=== PATIENT | female | born 1950 | race Caucasian/White ===

== ENCOUNTER 2016-05-01 15:06 | Emergency (ER) | payer BC ==
--- NOTE | 2016-05-01 15:31 | ED CLINICAL REPORT ---
Clinical Report - Physicians/Mid Levels [facility] [address] [place] [address] 05/01/2016 15:06 Patient: JOHN SILVA Time Seen: 15:22 May 01 2016. Arrived- By private vehicle. Historian- patient. HISTORY OF PRESENT ILLNESS Chief Complaint: EYE REDNESS. This started yesterday, involves the right eye and is characterized as mild. The patient did not sustain an injury. Not injured from contact lenses. No direct trauma to the eyes. No eye pain, eye discomfort, eye itching or eyelid swelling. ( Patient says she woke up yesterday with blood in her right eye. She says it doesn't hurt although she doesfeel little irritation in her right eyelid. No discharge.). REVIEW OF SYSTEMS All systems otherwise negative, except as recorded above. PAST HISTORY See nurses notes. The patient wears contact lenses. No history of prior eye injury, heart disease, diabetes mellitus, glaucoma or lung disease. SOCIAL HISTORY Smoker- current status unknown. Alcohol use. No drug use. ADDITIONAL NOTES The nursing notes have been reviewed. PHYSICAL EXAM Appearance: Alert. Oriented X3. No acute distress. HEENT: Ears normal. Nose normal. Pharynx normal. Head appears normal to external inspection. Rt Eye: Small subconjunctival hemorrhage. No exudate present. Eyes: Visual acuity noted- see nurse's notes. Right eyelid everted for examination. Eyelids appear normal to inspection. Pupils equal, round and reactive to light. Accommodation normal. Visual renee normal. EOMs intact. Right conjunctiva: No swelling, laceration or abrasion. Neck: Neck supple. Normal inspection. Respiratory: No respiratory distress. Skin: No rash. Neuro: Oriented X 3. Mood/affect normal. No motor deficit. No sensory deficit. PROGRESS AND PROCEDURES Course of Care: Small painless subconjunctival hemorrhage. No history of bruising and she is not on blood Thinners. Discussed watchful waiting. Follow up with us or ophthalmology if any worsening or further concerns. CLINICAL IMPRESSION Right subconjunctival hemorrhage INSTRUCTIONS No strenuous activity today, tomorrow as needed. No dietary restrictions. No alcohol. Warnings: GENERAL WARNINGS: Return or contact your physician immediately if your condition worsens or changes unexpectedly, if not improving as expected, or if other problems arise. Specifically return if pain, vomiting or fever worsens. Follow-up: Follow up with your doctor as needed. Understanding of the discharge instructions verbalized by patient. (Electronically signed by David Millan, 05/01/2016 23:38)
--- NOTE | 2016-05-01 15:31 | ED NURSING NOTES ---
Clinical Report - Nurses [facility] [place] [address] 05/01/2016 15:06 [id number] Triage time 15:20. Acuity: LEVEL 3. Chief Complaint: REDNESS TO RIGHT EYE. Alert. No acute distress. --15:25 Candice Bee R.N. 15:20 05/01/16. BP: 143/71. HR: 77. RR: 18. O2 saturation: 98% on room air. Pain level now: 0/10. --15:25 Candice Bee R.N. VISUAL ACUITY: Visual acuity performed with corrective lenses: left eye 20/40; right eye 20/25. --15:32 Candice Bee R.N. 15:32 05/01/16. Temp: 98.1 F (oral). --15:32 Candice Bee R.N. Weight: 68 kg stated. Height/Length: 65 inches Per Patient. BMI: 25. --15:24 Candice Bee R.N. Medications Lisinopril Oral. --15:22 Candice Bee R.N. Aother blood pressure med. --15:23 Candice Bee R.N. Medication/allergy information source: the patient. --15:25 Candice Bee R.N. Allergies Fiorinal. --15:23 Candice Bee R.N. History Arrived by private vehicle. Historian: patient. Primary physician (Sal). This started yesterday. She did not sustain an injury. SOCIAL HX: Heavy tobacco smoker- 1 pack per day. Occasional alcohol use. No drug use. FALL RISK ASSESSMENT: Fall risk assessment completed. No fall risk identified. FUNCTIONAL ASSESSMENT: Functional assessment: no impairments noted. LEARNING NEEDS ASSESSMENT: The learning needs assessment revealed no barriers. --15:25 Candice Bee R.N. PROBLEMS: Hypertension. --15:24 Rohit, Candice, R.N. Assessment GENERAL / NEURO / PSYCH: Alert. Oriented X 4. Appears in no acute distress. Patient appears calm and cooperative. RESPIRATORY: Respirations not labored. SKIN: Skin is warm and dry. --15:25 Candice Bee R.N. Interventions ID and allergy band on patient. To treatment room. --15:25 Candice Bee R.N. PHYSICAL ASSESSMENT 15:33 05/01/16. Ambulatory to room. GENERAL / NEURO / PSYCH: Alert. Appears in no acute distress. RESPIRATORY: Respirations not labored. SKIN: Skin is warm and dry. --15:33 Candice Bee R.N. NURSING PROGRESS NOTES 15:33 05/01/16. Head of bed elevated. Call light placed in reach. Side rails up x 1. Bed placed in lowest position. Brakes of bed on. --15:33 Candice Bee R.N. 15:35. The patient is calm. Overall patient status is the same- she states feels the same. GENERAL / NEURO / PSYCH: Alert. Oriented X 4. RESPIRATORY: No respiratory distress. SKIN: Skin is warm and dry. --16:26 Candice Bee R.N. DISPOSITION / DISCHARGE Departure time: 1535. Condition at departure: stable. No learning barriers present. Discharge instructions provided and reviewed with the patient. Patient verbalized understanding. Written instructions provided in [place]. The patient was discharged home and unaccompanied at time of discharge. She left the Emergency Department ambulatory and via private vehicle. FALL RISK ASSESSMENT: Fall risk assessment completed. No fall risk identified. --16:25 Candice Bee R.N. 15:35 05/01/16. BP: 121/55. HR: 79. RR: 18. O2 saturation: 98% on room air. --16:25 Candice Bee R.N. Locked/Released at 05/01/2016 16:27 by Candice Bee R.N.
--- NOTE | 2016-05-01 15:31 | ED CLINICAL REPORT ---
Clinical Report - Physicians/Mid Levels [facility] [address] [place] [address] 05/01/2016 15:06 Patient: JOHN SILVA Time Seen: 15:22 May 01 2016. Arrived- By private vehicle. Historian- patient. HISTORY OF PRESENT ILLNESS Chief Complaint: EYE REDNESS. This started yesterday, involves the right eye and is characterized as mild. The patient did not sustain an injury. Not injured from contact lenses. No direct trauma to the eyes. No eye pain, eye discomfort, eye itching or eyelid swelling. ( Patient says she woke up yesterday with blood in her right eye. She says it doesn't hurt although she doesfeel little irritation in her right eyelid. No discharge.). REVIEW OF SYSTEMS All systems otherwise negative, except as recorded above. PAST HISTORY See nurses notes. The patient wears contact lenses. No history of prior eye injury, heart disease, diabetes mellitus, glaucoma or lung disease. SOCIAL HISTORY Smoker- current status unknown. Alcohol use. No drug use. ADDITIONAL NOTES The nursing notes have been reviewed. PHYSICAL EXAM Appearance: Alert. Oriented X3. No acute distress. HEENT: Ears normal. Nose normal. Pharynx normal. Head appears normal to external inspection. Rt Eye: Small subconjunctival hemorrhage. No exudate present. Eyes: Visual acuity noted- see nurse's notes. Right eyelid everted for examination. Eyelids appear normal to inspection. Pupils equal, round and reactive to light. Accommodation normal. Visual renee normal. EOMs intact. Right conjunctiva: No swelling, laceration or abrasion. Neck: Neck supple. Normal inspection. Respiratory: No respiratory distress. Skin: No rash. Neuro: Oriented X 3. Mood/affect normal. No motor deficit. No sensory deficit. PROGRESS AND PROCEDURES Course of Care: Small painless subconjunctival hemorrhage. No history of bruising and she is not on blood Thinners. Discussed watchful waiting. Follow up with us or ophthalmology if any worsening or further concerns. CLINICAL IMPRESSION Right subconjunctival hemorrhage INSTRUCTIONS No strenuous activity today, tomorrow as needed. No dietary restrictions. No alcohol. Warnings: GENERAL WARNINGS: Return or contact your physician immediately if your condition worsens or changes unexpectedly, if not improving as expected, or if other problems arise. Specifically return if pain, vomiting or fever worsens. Follow-up: Follow up with your doctor as needed. Understanding of the discharge instructions verbalized by patient. (Electronically signed by David Millan, 05/01/2016 23:38)
--- NOTE | 2016-05-01 23:38 | ED MED RECONCILIATION SUMMARY ---
Patient: JOHN SILVA Medication Reconciliation Report [facility] VisitID: [id number] [address] [place] [address] 66y, F Registration Date/Time: 05/01/2016 Weight: 68.0 kg Height/Length: 65 in. BMI: 25.0 ALLERGIES: Fiorinal The patient's Home Medications are listed below: THE FOLLOWING MEDICATIONS NEED TO BE RECONCILED: Aother blood pressure med Lisinopril Oral The source(s) of the original Home Medication information: patient The following Medications were given to the patient in the Emergency Department: None. The following Medications were prescribed to the patient: None.
--- NOTE | 2016-05-01 23:38 | ED MAR SUMMARY ---
..... Medication Administration Record [facility] [address] [place], [place] [id number] Patient: JOHN SILVA Visit ID: [id number] 66y, F Weight: 68.0 kg Height/Length: 65 in BMI: 25 ALLERGIES: Fiorinal
--- NOTE | 2016-05-01 23:38 | ED DISCHARGE INSTRUCTIONS ---
Patient: JOHN SILVA General Instructions [facility] VisitID: [id number] [address] [place] [address] 66y, F Registration Date/Time: 05/01/2016 Right subconjunctival hemorrhage INSTRUCTIONS No strenuous activity today, tomorrow as needed. No dietary restrictions. No alcohol. Warnings: GENERAL WARNINGS: Return or contact your physician immediately if your condition worsens or changes unexpectedly, if not improving as expected, or if other problems arise. Specifically return if pain, vomiting or fever worsens. Follow-up: Follow up with your doctor as needed. Understanding of the discharge instructions verbalized by patient. ADDITIONAL INFORMATION Subconjunctival Hemorrhage A subconjunctival hemorrhage is a result of a broken blood vessel in the white portion of the eye. It is usually painless and may be caused by coughing, sneezing or vomiting. An injury to the eye can cause this. It can also be a sign of hypertension (high blood pressure) or a bleeding disorder. Although it can look frightening, the presence of the blood is not serious. The blood will be reabsorbed without treatment within 2-3 weeks. Home Care: You may continue your usual activities. Get Prompt Medical Attention if any of the following occur: Pain in the eye Change in vision The blood does not disappear within three weeks Increasing redness or swelling of the eye Severe headache or dizziness Other signs of bruising or bleeding from other parts of your body You have been given the following additional information: Subconjunctival Hemorrhage No strenuous activity today, tomorrow as needed. (Electronically signed by David Millan, 05/01/2016 23:38)
--- NOTE | 2016-05-01 23:38 | ED MAR SUMMARY ---
..... Medication Administration Record [facility] [address] [place], [place] [id number] Patient: JOHN SILVA Visit ID: [id number] 66y, F Weight: 68.0 kg Height/Length: 65 in BMI: 25 ALLERGIES: Fiorinal
--- NOTE | 2016-05-01 23:38 | ED MED RECONCILIATION SUMMARY ---
Patient: JOHN SILVA Medication Reconciliation Report [facility] VisitID: [id number] [address] [place] [address] 66y, F Registration Date/Time: 05/01/2016 Weight: 68.0 kg Height/Length: 65 in. BMI: 25.0 ALLERGIES: Fiorinal The patient's Home Medications are listed below: THE FOLLOWING MEDICATIONS NEED TO BE RECONCILED: Aother blood pressure med Lisinopril Oral The source(s) of the original Home Medication information: patient The following Medications were given to the patient in the Emergency Department: None. The following Medications were prescribed to the patient: None.
--- NOTE | 2016-05-01 23:38 | ED DISCHARGE INSTRUCTIONS ---
Patient: JOHN SILVA General Instructions [facility] VisitID: [id number] [address] [place] [address] 66y, F Registration Date/Time: 05/01/2016 Right subconjunctival hemorrhage INSTRUCTIONS No strenuous activity today, tomorrow as needed. No dietary restrictions. No alcohol. Warnings: GENERAL WARNINGS: Return or contact your physician immediately if your condition worsens or changes unexpectedly, if not improving as expected, or if other problems arise. Specifically return if pain, vomiting or fever worsens. Follow-up: Follow up with your doctor as needed. Understanding of the discharge instructions verbalized by patient. ADDITIONAL INFORMATION Subconjunctival Hemorrhage A subconjunctival hemorrhage is a result of a broken blood vessel in the white portion of the eye. It is usually painless and may be caused by coughing, sneezing or vomiting. An injury to the eye can cause this. It can also be a sign of hypertension (high blood pressure) or a bleeding disorder. Although it can look frightening, the presence of the blood is not serious. The blood will be reabsorbed without treatment within 2-3 weeks. Home Care: You may continue your usual activities. Get Prompt Medical Attention if any of the following occur: Pain in the eye Change in vision The blood does not disappear within three weeks Increasing redness or swelling of the eye Severe headache or dizziness Other signs of bruising or bleeding from other parts of your body You have been given the following additional information: Subconjunctival Hemorrhage No strenuous activity today, tomorrow as needed. (Electronically signed by David Millan, 05/01/2016 23:38)
== END 2016-05-01 15:35 | disposition home or self-care (01) ==
LOC: ED SRH 15:06
DX: H11.31 Conjunctival hemorrhage, right eye (principal); I10 Essential (primary) hypertension; F17.210 Nicotine dependence, cigarettes, uncomplicated; Z88.8 Allergy status to other drugs, medicaments and biological substances